=== PATIENT | female | born 1950 | race Caucasian/White ===

== ENCOUNTER 2016-11-16 09:32 | Outpatient (RCR) | payer MEDICARE ==
[~2016-11-16 09:32] MED LIST: ASPI-587 PO; CHOL10003 PO; HYDR500C PO; LOSA50TA6 PO; NF-ANAG0.5 PO; OMEP-10 GT; OMEP20CA6 PO
== END 2016-11-22 | disposition home or self-care (01) ==
LOC: ONC 09:32
PROVIDERS: ATTEND Internal Medicine Hematology & Oncology
DX: D69.3 Immune thrombocytopenic purpura (principal); Z85.820 Personal history of malignant melanoma of skin
CPT/HCPCS: 99213

== ENCOUNTER 2017-02-08 09:56 | Outpatient (RCR) | payer MEDICARE ==
--- OUTSIDE RECORDS SUMMARY | 2016-12-03 15:04 | XMS REPORT | Continuity of Care Document ---
Author Author [facility] Organization [facility] Address Unknown Phone Unavailable Allergies Active Description Code Type Severity Reaction Onset Reported/Identified Relationship to Patient Clinical Status Yes acetaminophen [id number] Drug Allergy Unknown N/A 12/02/2007 Yes adhesive [id number] Drug Allergy Unknown N/A 12/02/2007 Yes amoxicillin [id number] Drug Allergy Unknown N/A 12/02/2007 Yes oxycodone [id number] Drug Allergy Unknown N/A 12/02/2007 Yes Penicillins [id number] Drug Allergy Unknown N/A 12/02/2007 Yes TAPE TAPE Unknown N/A 09/03/2008 Medications Problems Date Dx Coded Attending Type Code Diagnosis Diagnosed By 08/19/1443 AYESHA COY Ot D69.3 IMMUNE THROMBOCYTOPENIC PURPURA 08/19/1443 AYESHA COY Ot Z85.820 PERSONAL HISTORY OF MALIGNANT MELANOMA O 10/13/2011 Ot 172.6 MALIG MELANOMA ARM 10/13/2011 Ot 196.3 MAL SOBIA LYMPH-AXILLA/ARM 10/13/2011 Ot 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, UNSPECIFIED 10/13/2011 Ot 998.12 HEMATOMA COMPLIC A PROC 04/08/2012 Ot 562.10 DIVERTICULOSIS COLON (W/O MENT OF HEMORR 04/08/2012 Ot V76.51 SCREEN MAL NEOP-COLON 01/18/2014 AYESHA COY Ot 457.1 OTHER LYMPHEDEMA 01/18/2014 AYESHA COY Ot V10.82 HX-MALIG SKIN MELANOMA 01/18/2014 AYESHA COY Ot V45.89 POSTSURGICAL STATES NEC 12/04/2014 Ot 211.3 BENIGN NEOPLASM LG BOWEL 12/04/2014 Ot 530.81 ESOPHAGEAL REFLUX 12/04/2014 Ot 553.3 DIAPHRAGMATIC HERNIA 03/01/2015 ALCIRA GUEVARA UNLOADER Ot 238.71 03/01/2015 ALCIRA GUEVARA Ot V10.82 03/01/2015 PAOLA ALCIRA Nichole UNLOADER Ot V58.69 03/06/2015 KRISTYN GUEVARABRENTON Nichole UNLOADER Ot 238.71 03/06/2015 PAOLA ALCIRA Nichole UNLOADER Ot V10.82 03/06/2015 GUEVARA ALCIRA Nichole UNLOADER Ot V58.69 09/17/2015 ZBIGNIEWAYESHA Ot D69.3 09/17/2015 ZBIGNIEWAYESHA Ot Z85.820 09/23/2015 AYESHA COY Ot D69.3 09/23/2015 ZBIGNIEWAYESHA ROJAS Ot Z85.820 11/06/2015 AYESHA COY Ot D69.3 IMMUNE THROMBOCYTOPENIC PURPURA 11/06/2015 AYESHA COY N Ot Z85.820 PERSONAL HISTORY OF MALIGNANT MELANOMA O 02/06/2016 ALCIRA GUEVARA UNLOADER Ot D58.2 OTHER HEMOGLOBINOPATHIES 02/06/2016 ALCIRA GUEVARA UNLOADER Ot D69.3 IMMUNE THROMBOCYTOPENIC PURPURA 02/06/2016 KRISTYN GUEVARABRENTON Dayanara UNLOADER Ot Z85.820 PERSONAL HISTORY OF MALIGNANT MELANOMA O 03/06/2016 KRISTYN GUEVARABRENTON Dayanara UNLOADER Ot D58.2 OTHER HEMOGLOBINOPATHIES 03/06/2016 KRISTYN GUEVARABRENTON S UNLOADER Ot D69.3 IMMUNE THROMBOCYTOPENIC PURPURA 03/06/2016 PAOLA ALCIRA S UNLOADER Ot Z85.820 PERSONAL HISTORY OF MALIGNANT MELANOMA O 03/11/2016 KRISTYN GUEVARABRENTON Dayanara UNLOADER Ot D58.2 OTHER HEMOGLOBINOPATHIES 03/11/2016 KRISTYN GUEVARABRENTON Dayanara UNLOADER Ot D69.3 IMMUNE THROMBOCYTOPENIC PURPURA 03/11/2016 KRISTYN GUEVARABRENTON Nichole UNLOADER Ot Z85.820 PERSONAL HISTORY OF MALIGNANT MELANOMA O 04/30/2016 AYESHA COY Ot D69.3 IMMUNE THROMBOCYTOPENIC PURPURA 04/30/2016 AYESHA COY N Ot Z85.820 PERSONAL HISTORY OF MALIGNANT MELANOMA O 05/08/2016 AYESHA COY Ot D69.3 IMMUNE THROMBOCYTOPENIC PURPURA 05/08/2016 AYESHA COY N Ot Z85.820 PERSONAL HISTORY OF MALIGNANT MELANOMA O 06/11/2016 ZBIGNIEW, BOBAN N Ot D69.3 IMMUNE THROMBOCYTOPENIC PURPURA 06/11/2016 AYESHA COY Ot Z85.820 PERSONAL HISTORY OF MALIGNANT MELANOMA O 06/17/2016 AYESHA COY Ot D69.3 IMMUNE THROMBOCYTOPENIC PURPURA 06/17/2016 AYESHA COY Ot Z85.820 PERSONAL HISTORY OF MALIGNANT MELANOMA O 06/29/2016 AYESHA COY Ot D69.3 IMMUNE THROMBOCYTOPENIC PURPURA 06/29/2016 AYESHA COY Ot Z85.820 PERSONAL HISTORY OF MALIGNANT MELANOMA O 08/17/2016 Ot 238.71 ESSENTIAL THROMBOCYTHEMIA 08/17/2016 Ot V58.69 OTH MED,LT,CURRENT USE 08/17/2016 Ot 172.6 MALIG MELANOMA ARM 08/17/2016 Ot V72.83 EXAM PRE-OPERATIVE NEC 08/17/2016 Ot V74.8 SCREEN-BACTERIAL DIS NEC 08/17/2016 Ot 172.6 MALIG MELANOMA ARM 08/17/2016 Ot 238.71 ESSENTIAL THROMBOCYTHEMIA 08/17/2016 Ot V58.69 OTH MED,LT,CURRENT USE 08/17/2016 Ot 238.71 ESSENTIAL THROMBOCYTHEMIA 08/17/2016 Ot 238.71 ESSENTIAL THROMBOCYTHEMIA 08/17/2016 Ot 401.9 HYPERTENSION NOS 08/17/2016 Ot V10.82 HX-MALIG SKIN MELANOMA 08/17/2016 Ot V58.69 OTH MED,LT,CURRENT USE 08/17/2016 Ot 238.71 ESSENTIAL THROMBOCYTHEMIA 08/17/2016 Ot 288.02 CYCLIC NEUTROPENIA 08/17/2016 Ot 789.2 SPLENOMEGALY 08/17/2016 Ot 238.71 ESSENTIAL THROMBOCYTHEMIA 08/17/2016 Ot 401.9 HYPERTENSION NOS 08/17/2016 Ot V10.82 HX-MALIG SKIN MELANOMA 08/17/2016 Ot V58.69 OTH MED,LT,CURRENT USE 08/17/2016 Ot V72.84 EXAM PRE-OPERATIVE NOS 08/17/2016 Ot 238.71 ESSENTIAL THROMBOCYTHEMIA 08/17/2016 Ot 401.9 HYPERTENSION NOS 08/17/2016 Ot V10.82 HX-MALIG SKIN MELANOMA 08/17/2016 Ot V58.69 OTH MED,LT,CURRENT USE 08/17/2016 Ot 238.71 ESSENTIAL THROMBOCYTHEMIA 08/17/2016 Ot V10.82 HX-MALIG SKIN MELANOMA 08/17/2016 Ot V58.69 OTH MED,LT,CURRENT USE 08/17/2016 Ot 238.71 ESSENTIAL THROMBOCYTHEMIA 08/17/2016 Ot 457.1 OTHER LYMPHEDEMA 08/17/2016 Ot V10.82 HX-MALIG SKIN MELANOMA 08/17/2016 Ot V58.69 OTH MED,LT,CURRENT USE 08/17/2016 AYESHA COY N Ot 238.71 ESSENTIAL THROMBOCYTHEMIA 08/17/2016 AYESHA COY N Ot 401.9 HYPERTENSION NOS 08/17/2016 AYESHA COY N Ot 457.1 OTHER LYMPHEDEMA 08/17/2016 AYESHA COY N Ot V10.82 HX-MALIG SKIN MELANOMA 08/17/2016 AYESHA COY N Ot V58.69 OTH MED,LT,CURRENT USE 08/17/2016 ALCIRA GUEVARA S UNLOADER Ot 238.71 ESSENTIAL THROMBOCYTHEMIA 08/17/2016 ALICRA GUEVARA S UNLOADER Ot 401.9 HYPERTENSION NOS 08/17/2016 ALCIRA GUEVARA S UNLOADER Ot V10.82 HX-MALIG SKIN MELANOMA 08/17/2016 ALCIRA GUEVARA UNLOADER Ot V58.69 OTH MED,LT,CURRENT USE 08/17/2016 AYESHA COY N Ot 238.71 ESSENTIAL THROMBOCYTHEMIA 08/17/2016 AYESHA COY N Ot V10.82 HX-MALIG SKIN MELANOMA 08/17/2016 AYESHA COY N Ot V58.69 OTH MED,LT,CURRENT USE 08/17/2016 ALCIRA GUEVARA S UNLOADER Ot 238.71 ESSENTIAL THROMBOCYTHEMIA 08/17/2016 ALCIRA GUEVARA S UNLOADER Ot V10.82 HX-MALIG SKIN MELANOMA 08/17/2016 ALCIRA GUEVARA S UNLOADER Ot V58.69 OTH MED,LT,CURRENT USE 08/17/2016 DIMA SALAS, MARY Cohen Ot 787.03 VOMITING ALONE 08/17/2016 AYESHA COY N Ot 238.71 ESSENTIAL THROMBOCYTHEMIA 08/17/2016 AYESHA COY N Ot V10.82 HX-MALIG SKIN MELANOMA 08/17/2016 AYESHA COY N Ot V58.69 OTH MED,LT,CURRENT USE 08/17/2016 Ot 787.01 NAUSEA WITH VOMITING 08/17/2016 Ot 789.00 ABDOMINAL PAIN, UNSPECIFIED SITE 08/17/2016 Ot V72.84 EXAM PRE-OPERATIVE NOS 08/17/2016 ALCIRA GUEVARA UNLOADER Ot 238.71 ESSENTIAL THROMBOCYTHEMIA 08/17/2016 ALCIRA GUEVARA UNLOADER Ot V10.82 HX-MALIG SKIN MELANOMA 08/17/2016 ALCIRA GUEVARA UNLOADER Ot V58.69 OT MED,LT,CURRENT USE 08/17/2016 ALCIRA GUEVARA UNLOADER Ot D58.2 OTHER HEMOGLOBINOPATHIES 08/17/2016 ALCIRA GUEVARA UNLOADER Ot D69.3 IMMUNE THROMBOCYTOPENIC PURPURA 08/17/2016 GUEVARAALCIRA Nichole UNLOADER Ot Z85.820 PERSONAL HISTORY OF MALIGNANT MELANOMA O 08/17/2016 AYESHA COY Ot D69.3 IMMUNE THROMBOCYTOPENIC PURPURA 08/17/2016 AYESHA COY Ot Z85.820 PERSONAL HISTORY OF MALIGNANT MELANOMA O 08/18/2016 EDA SUAZO MD Ot R11.2 NAUSEA WITH VOMITING, UNSPECIFIED 08/18/2016 EDA SUAZO MD Ot R19.7 DIARRHEA, UNSPECIFIED 08/25/2016 AYESHA COY Ot D69.3 IMMUNE THROMBOCYTOPENIC PURPURA 08/25/2016 AYESHA COY Ot Z85.820 PERSONAL HISTORY OF MALIGNANT MELANOMA O 09/08/2016 EDA SUAZO MD Ot R11.2 NAUSEA WITH VOMITING, UNSPECIFIED 09/08/2016 EDA SUAZO MD Ot R19.7 DIARRHEA, UNSPECIFIED 09/16/2016 EDA SUAZO MD Ot R11.2 NAUSEA WITH VOMITING, UNSPECIFIED 09/16/2016 EDA SUAZO MD Ot R19.7 DIARRHEA, UNSPECIFIED 10/13/2016 AYESHA COY Ot D69.3 IMMUNE THROMBOCYTOPENIC PURPURA 10/13/2016 AYESHA COY Ot Z85.820 PERSONAL HISTORY OF MALIGNANT MELANOMA O 10/22/2016 AYESHA COY Ot D69.3 IMMUNE THROMBOCYTOPENIC PURPURA 10/22/2016 AYESHA COY Ot Z85.820 PERSONAL HISTORY OF MALIGNANT MELANOMA O 11/22/2016 AYESHA COY Ot D69.3 IMMUNE THROMBOCYTOPENIC PURPURA 11/22/2016 AYESHA COY Ot Z85.820 PERSONAL HISTORY OF MALIGNANT MELANOMA O 11/24/2016 AYESHA COY Ot D69.3 IMMUNE THROMBOCYTOPENIC PURPURA 11/24/2016 AYESHA COY Ot Z85.820 PERSONAL HISTORY OF MALIGNANT MELANOMA O Procedures Results Encounters ACCT No. Visit Date/Time Discharge Status Pt. Type Provider Facility Loc./Unit Complaint [id number] 11/16/2016 09:32:00 2016 00:01:00 DIS Outpatient AYESHA COY [facility] ONC [id number] 05/07/2016 09:57:00 2015 14:44:00 DIS Outpatient AYESHA COY [facility] ONC [id number] 08/08/2015 10:01:00 2015 00:01:00 DIS Outpatient AYESHA COY [facility] ONC [id number] 01/30/2015 11:00:00 2014 23:59:59 CLS Outpatient ALCIRA GUEVARA [facility] ONC [id number] 07/12/2014 12:55:00 2013 23:59:59 CLS Outpatient AYESHA COY [facility] ONC [id number] 04/20/2014 09:37:00 2013 23:59:59 CLS Outpatient DIMA SALAS, MARY Cohen [facility] RAD RECCURRENT VOMITING [id number] 12/28/2013 10:05:00 2013 09:20:00 DIS Outpatient AYESHA COY [facility] REHAB LYMPHEDEMA RT UPPER EXTREMITY [id number] 01/10/2014 13:31:00 2013 23:59:59 CLS Outpatient ALCIRA GUEVARA UNLOADER [facility] ONC [id number] 07/12/2013 10:27:00 2012 23:59:59 CLS Outpatient AYESHA COY [facility] ONC [id number] 04/11/2013 13:54:00 2012 23:59:59 CLS Outpatient ALCIRA GUEVARAP [facility] ONC [id number] 01/18/2013 09:32:00 2012 23:59:59 CLS Outpatient AYESHA COY [facility] ONC [id number] 12/03/2016 15:01:00 ACT Outpatient AYESHA COY [facility] ONC [id number] 08/17/2016 08:42:00 ACT Outpatient EDA SUAZO MD [facility] RAD DIARRHEA,NAUSEA,VOMITING [id number] 02/05/2016 14:57:00 ACT Outpatient ALCIRA GUEVARA [facility] ONC [id number] 12/04/2014 07:58:00 Document Registration [id number] 11/30/2014 06:39:00 Document Registration [id number] 12/29/2012 09:33:00 Document Registration [id number] 09/27/2012 08:56:00 Document Registration [id number] 06/01/2012 10:56:00 Document Registration [id number] 04/08/2012 07:37:00 Document Registration [id number] 04/07/2012 09:29:00 Document Registration [id number] 02/04/2012 15:00:00 Document Registration [id number] 01/04/2012 07:55:00 Document Registration [id number] 01/01/2012 10:58:00 Document Registration [id number] 12/18/2011 10:32:00 Document Registration [id number] 10/13/2011 05:49:00 Document Registration [id number] 10/06/2011 09:30:00 Document Registration [id number] 10/05/2011 10:32:00 Document Registration [id number] 03/05/2011 10:07:00 Document Registration
== END 2017-03-03 | disposition home or self-care (01) ==
LOC: ONC 09:56
PROVIDERS: ATTEND Internal Medicine Hematology & Oncology
DX: D69.3 Immune thrombocytopenic purpura (principal); Z85.820 Personal history of malignant melanoma of skin
CPT/HCPCS: 99195; 99213

== ENCOUNTER 2017-05-10 09:40 | Outpatient (RCR) | payer MEDICARE | END 2017-06-19 | disposition home or self-care (01) | LOC: ONC 09:40 | PROVIDERS: ATTEND Internal Medicine Hematology & Oncology | DX: D69.3 Immune thrombocytopenic purpura (principal); Z85.820 Personal history of malignant melanoma of skin | CPT/HCPCS: 99195; 99213 ==

== ENCOUNTER → 2017-08-09 | Outpatient (CLI) | payer MEDICARE | LOC: EDSTATUS 06-20 09:36 → ONC 09:37 | PROVIDERS: ATTEND Internal Medicine Hematology & Oncology | DX: D69.3 Immune thrombocytopenic purpura (principal); Z85.820 Personal history of malignant melanoma of skin | CPT/HCPCS: 99195 ==

== ENCOUNTER 2017-11-29 11:04 | Outpatient (RCR) | payer MEDICARE ==
[2017-09-06 09:29] LABS: BASOPHILS # (AUTO) 0.1 10^3/uL (0.0-0.1); BASOPHILS % (AUTO) 2 % (0-10); EOSINOPHILS # (AUTO) 0.2 10^3/uL (0.0-0.3); EOSINOPHILS % (AUTO) 4 % (0-10); HEMATOCRIT 46 % (35-52); LYMPHOCYTES # (AUTO) 1.7 X 10^3 (1.0-4.0); LYMPHOCYTES % (AUTO) 26 % (12-44); MEAN CORPUSCULAR HEMOGLOBIN 27 PG (25-34); MEAN CORPUSCULAR HGB CONC 33 G/DL (32-36); MEAN CORPUSCULAR VOLUME 84 FL (80-99); MONOCYTES # (AUTO) 0.3 X 10^3 (0.0-1.0); MONOCYTES % (AUTO) 5 % (0-12); NEUTROPHILS % (AUTO) 63 % (42-75); PLATELET COUNT 159 10^3/uL (130-400); WHITE BLOOD COUNT 6.3 10^3/uL (4.3-11.0)
[2017-09-06 09:50] LABS: ALANINE AMINOTRANSFERASE 24 U/L (0-55); ALBUMIN 4.6 GM/DL (3.2-4.5); ALKALINE PHOSPHATASE 77 U/L (40-136); BILIRUBIN,TOTAL 1.1 MG/DL (0.1-1.0); BUN/CREATININE RATIO 17; CALCIUM 9.5 MG/DL (8.5-10.1); CARBON DIOXIDE 27 MMOL/L (21-32); CHLORIDE 106 MMOL/L (98-107); CREATININE SERUM 0.88 MG/DL (0.60-1.30); GFR ESTIMATED > 60; GLUCOSE 92 MG/DL (70-105); POTASSIUM 4.3 MMOL/L (3.6-5.0); SODIUM 141 MMOL/L (135-145)
== END 2017-12-05 | disposition home or self-care (01) ==
LOC: ONC 11:04
PROVIDERS: ATTEND Internal Medicine Hematology & Oncology
DX: D47.3 Essential (hemorrhagic) thrombocythemia (principal); Z85.820 Personal history of malignant melanoma of skin; I10 Essential (primary) hypertension; I89.0 Lymphedema, not elsewhere classified; Z79.82 Long term (current) use of aspirin; Z79.899 Other long term (current) drug therapy
CPT/HCPCS: 36415; 80053; 83615; 85025; 99213

== ENCOUNTER → 2018-01-25 | Outpatient (CLI) | payer MEDICARE ==
[~2018-01-25] MED LIST changes: +CATHETER FLUSH 10 ML SYR IV PRN; +REGADENOSON 0.4 MG/5 ML SYR (LEXISCAN) IV ONE
[2018-01-25 09:47] VITALS: BP 117/73
[2018-01-25 09:52] VITALS: BP 116/73
--- NOTE | 2018-01-26 13:57 | STRESS TEST ---
DATE OF SERVICE: 10/28/2017 PROCEDURE: Resting and post regadenoson technetium-99m Tetrofosmin SPECT CT imaging. ORDERING PHYSICIAN: Dr. Vick. PRIMARY CARE PHYSICIAN: Dr. Calderon. CLINICAL DIAGNOSES: Shortness of breath, hypertension. Baseline images were carried out after injection of 10.87 mCi of technetium-99m Tetrofosmin. This was followed by 0.4 mg regadenoson and 30.9 mCi of technetium-99m Tetrofosmin for stress imaging. The electrocardiogram showed sinus rhythm at baseline. Isolated premature ventricular contractions were seen. The electrocardiogram did not change significantly with the regadenoson infusion. The patient reported shortness of breath and some dizziness following her regadenoson infusion, which resolved in a few minutes. Review of images at rest and following stress does not indicate any significant perfusion defects consistent with significant myocardial ischemia or infarction. Gated images show normal global left ventricular systolic function with normal regional wall motion. Left ventricular ejection fraction is calculated to be 81%. Left ventricular end diastolic volume is 39 mL. TID is absent (0.92). CONCLUSIONS: 1. No evidence of any significant myocardial ischemia or infarction on this study. 2. Normal regional wall motion. 3. Normal global left ventricular systolic function with a calculated ejection fraction of 81%. Job ID: [id number] DocumentID: [id number] Dictated Date: 01/26/2018 08:39:54 Software Technical Lead Date: 01/26/2018 13:57:08 Dictated By: LEONIDES VICK MD, MA, FACP, FACC,
== END ==
LOC: CARD 08:02
PROVIDERS: ATTEND Internal Medicine Cardiovascular Disease
DX: I10 Essential (primary) hypertension (principal); R94.31 Abnormal electrocardiogram [ECG] [EKG]; R06.02 Shortness of breath; C43.61 Malignant melanoma of right upper limb, including shoulder; D45 Polycythemia vera; D47.3 Essential (hemorrhagic) thrombocythemia; G47.30 Sleep apnea, unspecified; Z86.79 Personal history of other diseases of the circulatory system
CPT/HCPCS: 78452; 93017

== ENCOUNTER 2018-02-02 10:00 | Outpatient (CLI) | payer MEDICARE ==
[~2018-02-02 10:00] MED LIST changes: -CATHETER FLUSH 10 ML SYR IV PRN; -REGADENOSON 0.4 MG/5 ML SYR (LEXISCAN) IV ONE
== END 2018-02-02 11:00 | disposition home or self-care (01) ==
LOC: SLEEP 10:00
PROVIDERS: ATTEND Nurse Practitioner
DX: G47.33 Obstructive sleep apnea (adult) (pediatric) (principal)

== ENCOUNTER → 2018-02-11 | Outpatient (CLI) | payer MEDICARE | LOC: CARD 11:01 | PROVIDERS: ATTEND Internal Medicine Cardiovascular Disease | DX: I10 Essential (primary) hypertension (principal); R94.31 Abnormal electrocardiogram [ECG] [EKG]; R06.02 Shortness of breath; C49.9 Malignant neoplasm of connective and soft tissue, unspecified; D45 Polycythemia vera; D47.3 Essential (hemorrhagic) thrombocythemia; Z86.79 Personal history of other diseases of the circulatory system | CPT/HCPCS: 93306 ==

== ENCOUNTER 2018-03-08 13:11 | Outpatient (RCR) | payer MEDICARE | END 2018-04-11 | disposition home or self-care (01) | LOC: ONC 13:11 | PROVIDERS: ATTEND Internal Medicine Hematology & Oncology | DX: D45 Polycythemia vera (principal); Z85.820 Personal history of malignant melanoma of skin; I89.0 Lymphedema, not elsewhere classified; I10 Essential (primary) hypertension; R19.7 Diarrhea, unspecified; Z79.82 Long term (current) use of aspirin; Z79.899 Other long term (current) drug therapy | CPT/HCPCS: 99213 ==

== ENCOUNTER 2018-05-24 13:01 | Outpatient (RCR) | payer MEDICARE | END 2018-06-19 | disposition home or self-care (01) | LOC: ONC 13:01 | PROVIDERS: ATTEND Internal Medicine Hematology & Oncology | DX: D45 Polycythemia vera (principal); Z85.820 Personal history of malignant melanoma of skin; I89.0 Lymphedema, not elsewhere classified; I10 Essential (primary) hypertension; R19.7 Diarrhea, unspecified; Z79.82 Long term (current) use of aspirin; Z79.899 Other long term (current) drug therapy | CPT/HCPCS: 99213 ==

== ENCOUNTER 2018-08-22 13:18 | Outpatient (RCR) | payer MEDICARE | END 2018-11-20 | disposition home or self-care (01) | LOC: ONC 13:18 | PROVIDERS: ATTEND Internal Medicine Hematology & Oncology | DX: D45 Polycythemia vera (principal); Z85.820 Personal history of malignant melanoma of skin; I89.0 Lymphedema, not elsewhere classified; I10 Essential (primary) hypertension; R19.7 Diarrhea, unspecified; Z79.82 Long term (current) use of aspirin; Z79.899 Other long term (current) drug therapy | CPT/HCPCS: 99213 ==

== ENCOUNTER 2019-04-27 10:05 | Outpatient (RCR) | payer MEDICARE | END 2019-07-26 | disposition home or self-care (01) | LOC: ONC 10:05 | PROVIDERS: ATTEND Internal Medicine Hematology & Oncology | DX: D45 Polycythemia vera (principal); Z85.820 Personal history of malignant melanoma of skin; I89.0 Lymphedema, not elsewhere classified; I10 Essential (primary) hypertension; R19.7 Diarrhea, unspecified; Z79.82 Long term (current) use of aspirin; Z79.899 Other long term (current) drug therapy | CPT/HCPCS: 99213 ==

== ENCOUNTER 2019-07-27 13:08 | Outpatient (RCR) | payer MEDICARE | END 2019-10-25 | disposition home or self-care (01) | LOC: ONC 13:08 | PROVIDERS: ATTEND Internal Medicine Hematology & Oncology | DX: D45 Polycythemia vera (principal); Z85.820 Personal history of malignant melanoma of skin; I89.0 Lymphedema, not elsewhere classified; I10 Essential (primary) hypertension; R19.7 Diarrhea, unspecified; Z79.82 Long term (current) use of aspirin; Z79.899 Other long term (current) drug therapy; G47.33 Obstructive sleep apnea (adult) (pediatric); M19.90 Unspecified osteoarthritis, unspecified site | CPT/HCPCS: 99213 ==

== ENCOUNTER 2020-01-23 09:57 | Outpatient (RCR) | payer MEDICARE | END 2020-01-24 | disposition home or self-care (01) | LOC: ONC 09:57 | PROVIDERS: ATTEND Internal Medicine Hematology & Oncology | DX: D45 Polycythemia vera (principal); Z85.820 Personal history of malignant melanoma of skin; I89.0 Lymphedema, not elsewhere classified; I10 Essential (primary) hypertension; R19.7 Diarrhea, unspecified; Z79.82 Long term (current) use of aspirin; Z79.899 Other long term (current) drug therapy; G47.33 Obstructive sleep apnea (adult) (pediatric); M19.90 Unspecified osteoarthritis, unspecified site | CPT/HCPCS: 99213 ==

== ENCOUNTER 2020-05-07 09:33 | Outpatient (RCR) | payer MEDICARE | END 2020-08-05 | disposition home or self-care (01) | LOC: ONC 09:33 | PROVIDERS: ATTEND Internal Medicine Hematology & Oncology | DX: D45 Polycythemia vera (principal); I89.0 Lymphedema, not elsewhere classified; I10 Essential (primary) hypertension; M19.90 Unspecified osteoarthritis, unspecified site; G47.33 Obstructive sleep apnea (adult) (pediatric); R19.7 Diarrhea, unspecified; Z79.82 Long term (current) use of aspirin; Z85.820 Personal history of malignant melanoma of skin; Z79.899 Other long term (current) drug therapy | CPT/HCPCS: 99213 ==

== ENCOUNTER 2020-06-13 10:10 | Outpatient (RCR) | payer MEDICARE | END 2020-06-13 10:54 | disposition home or self-care (01) | PROVIDERS: ATTEND Internal Medicine Hematology & Oncology | DX: I89.0 Lymphedema, not elsewhere classified (principal) ==

== ENCOUNTER 2020-09-02 10:13 | Outpatient (RCR) | payer MEDICARE | END 2020-11-29 07:49 | disposition home or self-care (01) | LOC: ONC 10:13 | PROVIDERS: ATTEND Internal Medicine Hematology & Oncology | DX: C43.61 Malignant melanoma of right upper limb, including shoulder (principal); D45 Polycythemia vera; I89.0 Lymphedema, not elsewhere classified; I10 Essential (primary) hypertension; M19.90 Unspecified osteoarthritis, unspecified site; G47.33 Obstructive sleep apnea (adult) (pediatric); R19.7 Diarrhea, unspecified; Z79.82 Long term (current) use of aspirin; Z85.820 Personal history of malignant melanoma of skin; Z79.899 Other long term (current) drug therapy | CPT/HCPCS: 99213 ==

== ENCOUNTER 2020-12-03 10:00 | Outpatient (RCR) | payer MEDICARE | END 2021-03-03 11:29 | disposition home or self-care (01) | LOC: ONC 10:00 | PROVIDERS: ATTEND Internal Medicine Hematology & Oncology | DX: C43.61 Malignant melanoma of right upper limb, including shoulder (principal); D45 Polycythemia vera; I89.0 Lymphedema, not elsewhere classified; I10 Essential (primary) hypertension; M19.90 Unspecified osteoarthritis, unspecified site; G47.33 Obstructive sleep apnea (adult) (pediatric); R19.7 Diarrhea, unspecified; Z79.82 Long term (current) use of aspirin; Z85.820 Personal history of malignant melanoma of skin; Z79.899 Other long term (current) drug therapy | CPT/HCPCS: 99213 ==

== ENCOUNTER → 2021-03-04 | Outpatient (CLI) | payer MEDICARE | LOC: ONC 13:49 | PROVIDERS: ATTEND Internal Medicine Hematology & Oncology | DX: Z51.11 Encounter for antineoplastic chemotherapy (principal); D47.3 Essential (hemorrhagic) thrombocythemia; I89.0 Lymphedema, not elsewhere classified; D45 Polycythemia vera; I10 Essential (primary) hypertension; G47.33 Obstructive sleep apnea (adult) (pediatric); M85.89 Other specified disorders of bone density and structure, multiple sites; Z96.651 Presence of right artificial knee joint; Z85.820 Personal history of malignant melanoma of skin; Z98.890 Other specified postprocedural states | CPT/HCPCS: 99213 ==

== ENCOUNTER → 2021-06-04 | Outpatient (CLI) | payer MEDICARE | LOC: ONC 13:11 | PROVIDERS: ATTEND Internal Medicine Hematology & Oncology | DX: Z51.11 Encounter for antineoplastic chemotherapy (principal); D45 Polycythemia vera; M91.0 Juvenile osteochondrosis of pelvis; G47.33 Obstructive sleep apnea (adult) (pediatric); I89.0 Lymphedema, not elsewhere classified; I10 Essential (primary) hypertension; Z85.820 Personal history of malignant melanoma of skin | CPT/HCPCS: 99213 ==

== ENCOUNTER → 2021-07-22 | Outpatient (CLI) | payer MEDICARE ==
[~2021-07-22] MED LIST changes: +REGADENOSON 0.4 MG/5 ML SYR (LEXISCAN) IV ONE
[2021-07-22] MEDS: CATHETER FLUSH 10 ML SYR IV PRN ×2 (08:26→09:28)
[2021-07-22 09:23] VITALS: BP 152/98
--- NOTE | 2021-07-23 13:42 | STRESS TEST ---
DATE OF SERVICE: 07/22/2021 RESTING AND POST REGADENOSON TECHNETIUM-99M TETROFOSMIN SPECT CT IMAGING ORDERING PHYSICIAN: Dr. Vick. PRIMARY PHYSICIAN: Dr. Jhaveri. CLINICAL DIAGNOSES: Chest discomfort. Baseline images were carried out after injection of 10.88 mCi of technetium-99m Tetrofosmin. This was followed by 0.4 mg regadenoson and 29.4 mCi of technetium-99m Tetrofosmin for stress imaging. The electrocardiogram showed sinus rhythm at baseline. There appears to be sinus arrhythmia and there appeared to be a short episode of supraventricular tachycardia lasting approximately 7 beats at approximately 150 beats per minute. The patient tolerated the procedure well. Review of images at rest and following stress does not indicate any significant perfusion defects consistent with myocardial ischemia or infarction. Gated images show normal global left ventricular systolic function with normal regional wall motion. Left ventricular ejection fraction is calculated to be 81%. Left ventricular end diastolic volume is 46 mL. TID is absent (0.79). CONCLUSIONS: 1. No evidence of myocardial ischemia or infarction on this study. 2. Normal regional wall motion. 3. Normal to hyperdynamic left ventricular systolic function with a calculated ejection fraction of 81%. 4. Evidence of sinus arrhythmia and one 7-beat run of ventricular tachycardia at approximately 150 beats per minute. Job ID: [id number] DocumentID: [id number] Dictated Date: 07/23/2021 08:31:43 Field Sales Representative Date: 07/23/2021 13:41:49 Dictated By: LEONIDES VICK MD, MA, FACP, FACC,
== END ==
LOC: CARD 08:30
PROVIDERS: ATTEND Internal Medicine Cardiovascular Disease
DX: I49.9 Cardiac arrhythmia, unspecified (principal)
CPT/HCPCS: 78452; 93017; A9502

== ENCOUNTER 2021-08-05 09:00 | Day surgery (SDC) | payer MEDICARE ==
[~2021-08-05] VITALS: Ht 165.1 cm; Wt 76.5 kg
[2021-08-05] VITALS (8 sets, daily range): BP systolic 129–147; BP diastolic 73–84
[2021-08-05 07:34] LABS: HEMATOCRIT 42 % (35-52); HEMOGLOBIN 14.3 g/dL (11.5-16.0); MEAN CORPUSCULAR HEMOGLOBIN 38 pg (25-34); MEAN CORPUSCULAR HGB CONC 34 g/dL (32-36); MEAN CORPUSCULAR VOLUME 112 fL (80-99); MEAN PLATELET VOLUME 11.2 fL (9.0-12.2); PLATELET COUNT 199 10^3/uL (130-400); WHITE BLOOD COUNT 3.2 10^3/uL (4.3-11.0)
[2021-08-05 07:48] LABS: INR 1.2 (0.8-1.4); POTASSIUM 4.2 MMOL/L (3.6-5.0); PROTHROMBIN TIME PATIENT 15.5 SEC (12.2-14.7)
[2021-08-05 07:49] LABS: ALBUMIN 4.3 GM/DL (3.2-4.5)
[2021-08-05 07:50] LABS: CALCIUM 9.2 MG/DL (8.5-10.1)
[2021-08-05 07:51] LABS: TOTAL PROTEIN 6.5 GM/DL (6.4-8.2)
[2021-08-05 07:53] LABS: BILIRUBIN,TOTAL 1.3 MG/DL (0.1-1.0)
[2021-08-05 07:55] LABS: CREATININE SERUM 0.74 MG/DL (0.60-1.30)
[~2021-08-05 09:00] MED LIST changes: +AMLO-250 PO; +ASPI-999 PO; +HEParin (CATH LAB) 2,000 ML IV ONE; +HYDR500C2 PO; +LEVO100T PO; +LIDOCAINE 1% INJ 20 ML 20 ML VIAL ONE; +LOSA100T57 PO; +METO50TA7 PO; +MONT10TA32 PO; +NS IV 1000 ML 1,000 ML IV SCH; +NS IV 1000 ML 1,000 ML ONE; +OMEP20TA33 PO; -REGADENOSON 0.4 MG/5 ML SYR (LEXISCAN) IV ONE
[2021-08-05] MEDS ORDERED: fentaNYL INJ 100 MCG/2 ML AMP ONE (09:22)
[2021-08-05] MEDS ORDERED: MIDAZOLAM 5 MG/5 ML (VERSED) VIAL ONE (09:22)
[2021-08-05] MEDS ORDERED: ADENOSINE 90 MG/30 ML (ADENOSCAN) VIAL IV ONE ×2 (09:54→10:15)
[2021-08-05] MEDS ORDERED: HEParin 1000 UNIT/ML (10ML VIAL) FOR BOLUS ONE (09:54)
--- NOTE | 2021-08-05 10:42 | Cardiac Procedure Note-CS/ASA ---
Pre-Procedure Note Pre-Op Procedure Note H&P Reviewed The H&P was reviewed, patient examined and no changes noted. Date H&P Reviewed: Aug 05, 2021 Time H&P Reviewed: 09:30 Conscious Sedation Pre-Proced Time 09:30 ASA Score 3 For ASA 3 and 4: Consider anesthesia and medical clearance. Also, for patients with a history of failed moderate sedation consider anesthesia. Airway Lungs Heart ASA score ASA 1: a normal healthy patient ASA 2: a patient with a mild systemic disease (mid diabetes, controlled hypertension, obesity ASA 3: a patient with a severe systemic disease that limits activity (angina, COPD, prior Myocardial infarction) ASA 4: a patient with an incapacitating disease that is a constant threat to life (CHF, renal failure) ASA 5: a moribund patient not expected to survive 24 hrs. (ruptured aneurysm) ASA 6: a declared brain- patient whose organs are being harvested. For emergent operations, add the letter E after the classification Mallampati Classification Grade 2 Sedation Plan Analgesia, Amnesia, Plan communicated to team members, Discussed options with patient/fam, Discussed risks with patient/fam The patient is an appropriate candidate to undergo the planned procedure, sedation, and anesthesia. The patient immediately re-assessed prior to indication. LEONIDES TENORIO MD FACP FAC CCDS Aug 05, 2021 10:42
--- NOTE | 2021-08-05 10:44 | Discharge Inst-Cardiology ---
Discharge Inst-Cardiac Discharge Medications Continued Medications: Amlodipine Besylate (Amlodipine Besylate) 5 Mg Tablet 5 MG PO 1200, TAB Aspirin (Aspirin) 81 Mg Tab.chew 81 MG PO 1200, TAB Hydroxyurea (Hydroxyurea) 500 Mg Capsule 500 MG PO BID, CAP ONLY TAKES 1 CAPSULE ON SATURDAYS Levothyroxine Sodium (Synthroid) 100 Mcg Tablet 100 MCG PO DAILY, TAB Losartan Potassium (Losartan Potassium) 100 Mg Tablet 100 MG PO HS, TAB Metoprolol Succinate (Metoprolol Succinate) 50 Mg Tab.er.24h 50 MG PO 1900, TAB Montelukast Sodium (Montelukast Sodium) 10 Mg Tablet 10 MG PO HS, TAB Omeprazole Magnesium (Prilosec Otc) 20 Mg Tablet.dr 20 MG PO 1900, TAB LEONIDES TENORIO MD [facility] CCDS Aug 05, 2021 10:44
[2021-08-05] MEDS ORDERED: PATIENT MAY USE OWN MEDS, ALL PO SCH (10:45)
[2021-08-05] MEDS ORDERED: NS IV 1000 ML 1,000 ML IV SCH (10:45)
--- NOTE | 2021-08-05 10:45 | Discharge Inst-Post CATH ---
Discharge Inst-CATH/EP Post Cardiac Cath/EP D/C Inst Follow Up/Plan F/u with Dr Vick in 2-3 weeks ACTIVITY * Go Home directly and rest. * Limit activity of the leg (or wrist if it was used) for 7 days including aerobics, swimming, jogging, bicycling, etc. * Restrict stair-climbing for 7 days if possible, if not, climb up with your non-cath leg, then bring together on the same step. * Avoid lifting, pushing, pulling or excessive movement of the affected extremity for 7 days. * Customary sexual activity may be resumed after 2 days-use caution not to use a position that strains or causes pain to the affected extremity. * No driving for 24 hours. * NO SMOKING. * Avoid straining for bowel movements for 7 days. * Gentle walking on level ground is allowed. * Returning to work will depend on the type of procedure and the results. Your doctor will discuss this with you. CALL YOUR DOCTOR FOR ANY OF THE FOLLOWING: *If bleeding from the puncture site occurs- Apply gentle pressure to site with clean cloth and call your doctor or EMS. * If a knot or lump forms under the skin, increases in size, or causes pain. * If bruising appears to be worsening or moving further down your leg instead of disappearing. * Temperature above 101 F. CARE OF YOUR GROIN INCISION; * Bruising or purple discoloration of the skin near the puncture site is common. * You may shower only, no bathtub bathing for 5 days. Be careful to avoid slipping as your leg may feel stiff. * If a closure device was used on your femoral artery, please see the attached guide regarding care of the device and your leg. * Leave dressing on FOR 24 hours. CARE OF YOUR WRIST INCISION; * Bruising or purple discoloration of the skin near the puncture site is common. * You may shower. * DO NOT submerge wrist. * Leave dressing on FOR 24 hours. LEONIDES VICK MD [facility] CCDS Aug 05, 2021 10:45
--- NOTE | 2021-08-05 13:03 | CARDIAC CATHETERIZATION ---
DATE OF SERVICE: 08/05/2021 CARDIAC CATHETERIZATION REPORT INDICATION FOR PROCEDURE: The patient is a 70-year-old lady, who has had nonspecific chest discomfort. Myocardial perfusion imaging did not indicate ischemia, but she did have a 7-beat run of wide complex tachycardia, probably ventricular tachycardia. Accordingly, cardiac catheterization was recommended. Informed consent was obtained. DESCRIPTION OF PROCEDURE: She was brought to the cardiac catheterization laboratory in a fasting state. Right groin was prepared and draped in the usual sterile fashion. Lidocaine 1% was infused to local anesthesia. Modified Seldinger technique was used to advance a 5-[place] sheath in the right femoral artery, 5-[place] JL4 catheter for left coronary angiography, 5-[place] JR4 catheter for right coronary angiography, 5-[place] pigtail catheter was used for left heart catheterization and left ventricular angiography. Subsequently, fractional flow reserve measurement was carried out in the mid left anterior descending artery lesion that appeared to be 40% to 50%. It is described below. FRACTIONAL FLOW RESERVE MEASUREMENT IN THE LEFT ANTERIOR DESCENDING: We used a 5-[place] JL4 catheter to advance a pressure wire across the lesion, but the 5-[place] catheter was not resulting in good measurement of the proximal pressure. We removed the wire and the catheter and exchanged the sheath over a wire for a 6-[place] sheath and used a 6-[place] JL4 guide catheter to engage the left coronary artery and advanced the pressure wire across the lesion and then gave adenosine at 140 mcg per kilogram per minute for 3 minutes. Fractional flow reserve was 0.95, indicating hemodynamic nonsignificance. The wire and the catheter were removed. Angiography of the right femoral artery was carried out through the sheath and Mynx was used to achieve hemostasis. The patient received 4000 units of intravenous heparin at the beginning of the fractional flow reserve measurement procedure. Overall, she tolerated the procedure well. HEMODYNAMICS: Left ventricular end-diastolic pressure following coronary angiography was 17 mmHg. There was no significant pressure gradient on pullback across the aortic valve. LEFT VENTRICULAR ANGIOGRAPHY: Left ventricular angiography was carried out in the right anterior oblique projection. Global left ventricular systolic function is normal. No regional wall motion abnormality was seen. Left ventricular ejection fraction is 60% to 65%. CORONARY ANGIOGRAPHY: Left main coronary artery is free of significant disease. Left anterior descending artery has 40% to 50% stenosis in its mid portion and fractional flow reserve across this lesion is 0.95. Left circumflex artery does not exhibit significant lesion. Right coronary artery is dominant and does not exhibit significant lesion. CONCLUSION: 1. Mild to moderate coronary artery disease with 40% to 50% stenosis of the mid left anterior descending and a fractional flow reserve across it of 0.95 that indicates hemodynamic nonsignificance. The left circumflex and the right coronary artery do not exhibit significant stenoses. 2. Normal global left ventricular systolic function with an ejection fraction of 60% to 65%. 3. Left ventricular end-diastolic pressure is 17 mmHg. DISCUSSION AND RECOMMENDATIONS: Based on results of the study, it appears appropriate to continue a conservative approach. Risk factor modification has been reviewed. Beta maninder therapy is being continued. Aspirin therapy is being continued. Outpatient followup is advised. Job ID: [id number] DocumentID: [id number] Dictated Date: 08/05/2021 10:31:49 Customer Support Engineer Date: 08/05/2021 13:03:14 Dictated By: LEONIDES TENORIO MD, MA, FACP, FACC,
== END 2021-08-05 14:20 | disposition home or self-care (01) ==
LOC: CATH 09:00 → SDC 11:00 → CATH 14:20
PROVIDERS: ATTEND Internal Medicine Cardiovascular Disease
DX: I25.10 Atherosclerotic heart disease of native coronary artery without angina pectoris (principal); I10 Essential (primary) hypertension; R19.7 Diarrhea, unspecified; D75.839 Thrombocytosis, unspecified; G47.33 Obstructive sleep apnea (adult) (pediatric); Z79.899 Other long term (current) drug therapy; Z85.820 Personal history of malignant melanoma of skin; Z79.82 Long term (current) use of aspirin
CPT/HCPCS: 80053; 80061; 85027; 85610; 85730; 87081; 93458; 93571; C1760; C1769; C1887; C1894 ×2; 36415

== ENCOUNTER → 2021-09-03 | Outpatient (CLI) | payer MEDICARE ==
[~2021-09-03] MED LIST changes: -HEParin (CATH LAB) 2,000 ML IV ONE; -LIDOCAINE 1% INJ 20 ML 20 ML VIAL ONE; +MONT-40 PO; -MONT10TA32 PO; -NS IV 1000 ML 1,000 ML IV SCH; -NS IV 1000 ML 1,000 ML ONE
== END ==
LOC: ONC 15:34
PROVIDERS: ATTEND Internal Medicine Hematology & Oncology
DX: Z51.11 Encounter for antineoplastic chemotherapy (principal); D45 Polycythemia vera; D58.2 Other hemoglobinopathies; I10 Essential (primary) hypertension; M81.0 Age-related osteoporosis without current pathological fracture; G47.33 Obstructive sleep apnea (adult) (pediatric); I89.0 Lymphedema, not elsewhere classified
CPT/HCPCS: 99213

== ENCOUNTER → 2021-11-25 | Outpatient (CLI) | payer MEDICARE ==
--- NOTE | 2021-11-25 12:54 | Diagnostic Imaging Report ---
INDICATION: Postmenopausal screening COMPARISON: 11/21/2002 FINDINGS: AP Spine L1-L4: [BMD (g/cm2): 1.154] [T-Score: -0.4] [Z-Score: 0.9] [BMD Previous: 1.442] [BMD % Change: -20.0] LT Hip Neck: [BMD (g/cm2): 0.865] [T-Score: -1.2] [Z-Score: 0.3] LT Hip Total: [BMD (g/cm2):0.967] [T-Score:-0.3] [Z-Score: 0.9] [BMD Previous: 1.211] [BMD % Change: -20.1] RT Hip Neck: [BMD (g/cm2):0.795] [T-Score:-1.8] [Z-Score:-0.2] RT Hip Total: [BMD (g/cm2):0.845] [T-score:-1.3] [Z-Score:0.0] [BMD Previous:1.192] [BMD % Change:-39.1] *Indicates significant change from prior examination based on 95% confidence level. World Health Organization criteria for BMD interpretation classify patients as Normal (T-score at or above -1.0), Osteopenic (T-score between -1.0 and -2.5) or Osteoporotic (T-score at or below -2.5). LIMITATIONS AND MODIFICATION: None. FRACTURE RISK (FRAX SCORE): The ten year probability of (%): Major Osteoporotic Fracture: [11.2] Hip Fracture: [2.1] IMPRESSION: 1. Osteopenia (Low bone mass). 2. Bone mineral density has decreased by a statistically significant amount, as detailed above. 3. See below National Osteoporosis Foundation guidelines on when to potentially initiate pharmacologic therapy. Based on the National Osteoporosis Foundation Guidelines, pharmacologic treatment should be initiated in any of the following, unless clinical conditions suggest otherwise: * Any patient with prior fragility fracture of the hip or vertebrae. A spine fracture indicates 5X risk for subsequent spine fracture and 2X risk for subsequent hip fracture. * Osteoporosis (T-score <-2.5). * Postmenopausal women and men age 50 and older with low bone mass/osteopenia (T-score between -1.0 and -2.5) by DXA and 10-year major osteoporotic fracture greater than 20% or a 10-year probability of hip fracture greater than 3%. These fracture risks are supplied above in the FRAX score, if applicable. * Clinician judgement and/or patient preferences may indicate treatment for people with 10-year fracture probabilities above or below these levels. Dictated by: Dictated on workstation # [id number]
== END ==
LOC: RAD 10:00
PROVIDERS: ATTEND Family Medicine
DX: Z13.820 Encounter for screening for osteoporosis (principal); M85.88 Other specified disorders of bone density and structure, other site; M40.209 Unspecified kyphosis, site unspecified; Z78.0 Asymptomatic menopausal state
CPT/HCPCS: 77080

== ENCOUNTER → 2022-12-21 | Outpatient (CLI) | payer MEDICARE ==
--- NOTE | 2022-12-21 13:41 | Diagnostic Imaging Report ---
PROCEDURE: US Thyroid. TECHNIQUE: Multiple real-time grayscale images were obtained of the thyroid in various projections. INDICATION: Dysphagia. Fullness of the left thyroid region. COMPARISON: None. FINDINGS: Right lobe measures 4.1 x 1.4 x 1.2 cm. Left lobe measures 2.1 x 1 x 1.2 cm. Isthmus measures 4 mm in AP thickness. Thyroid parenchyma is mostly diffusely homogeneous. Color flow images show normal vascularity. There is fairly well-circumscribed subcentimeter hypoechoic nodular lesion that measures 3 x 4 x 2 mm. This has a solid appearance. No suspicious microcalcifications are seen. Based on imaging appearance, this is consistent with TI-RADS 4 lesion. Given its small size, this could be followed with follow-up sonogram in one year. IMPRESSION: 1. Small nodular lesion of the right thyroid lobe with recommendations and TI-RADS classification as above. Dictated by: Dictated on workstation # [id number]
== END ==
LOC: RAD 10:34
PROVIDERS: ATTEND Family Medicine
DX: E04.1 Nontoxic single thyroid nodule (principal); R13.10 Dysphagia, unspecified
CPT/HCPCS: 76536

== ENCOUNTER → 2023-08-18 | Outpatient (CLI) | payer MEDICARE ==
[~2023-08-18] MED LIST changes: -LOSA100T57 PO; +LOSA100T58 PO
--- NOTE | 2023-08-18 13:31 | Diagnostic Imaging Report ---
INDICATION: Right arm swelling. Patient also has right arm pain. TECHNIQUE: Grayscale, color-flow, and duplex Doppler evaluation of the right upper extremity deep venous system was performed. FINDINGS: The right internal jugular vein as well as the right subclavian and axillary veins are widely patent. The brachial vein as well as the cephalic and basilic and radial and ulnar veins are patent. No thrombus is seen. There is some edema in the subcutaneous tissues. No fluid collection or mass is detected. IMPRESSION: No evidence of right upper extremity DVT. Dictated by: Dictated on workstation # [id number]
== END ==
LOC: RAD 10:41
DX: I97.2 Postmastectomy lymphedema syndrome (principal)